=== PATIENT | female | born 1955 | race Caucasian/White ===

== ENCOUNTER 2019-02-15 12:06 | Outpatient (CLI) | payer MEDICARE, OTHER | END 2019-02-15 12:15 | LOC: LAB 12:06 | PROVIDERS: ATTEND Family Medicine | CPT/HCPCS: 36415; 86704; 86708; 86735; 86762; 86765; 86787 ==

== ENCOUNTER 2019-07-17 16:03 | Outpatient (CLI) | payer MEDICARE, OTHER ==
--- NOTE | 2019-07-18 10:19 | Diagnostic Imaging Report ---
KIM MATHEWS [facility] [address] [facility] [address] [id number] Report Submission Date: Jul 17, 2019 4:52:09 PM CDT Patient Study Name: JULIO GONSALES Date: Jul 17, 2019 4:01:14 PM CDT Modality Type: DX Gender: F Description: KNEE 3 VIEWS : 57 Institution: [facility] Physician: KIM MATHEWS 3 views of the right knee History: RT KNEE, ACUTE PAIN/SWELLING, PRIOR KNEE SURGERY No comparison studies Cortical deformity of the distal femur and proximal tibia are noted with intact internal fixation hardware. Juan-medial subluxation of the distal femur on the tibia Extensive degenerative changes with medial knee joint space narrowing. Soft tissue swelling and suprapatellar effusion are present. Extensive heterotopic ossification at the knee. Right proximal fibular old fracture deformity. Patellar subluxation Impression: 1. Old fracture deformities of the right distal femur, proximal tibia and fibula with extensive heterotopic ossification at the knee joint. The hardware is intact. 2. Anteromedial subluxation of the distal femur on the patella with patellar subluxation. Soft tissue swelling and suprapatellar effusion are present 3. Extensive degenerative changes with endplate sclerosis, medial knee joint space narrowing. Please compare with prior studies. Electronically signed on Jul 17, 2019 4:52:09 PM CDT by: Gaby BONE
== END 2019-07-17 16:05 ==
LOC: RAD 16:03
PROVIDERS: ATTEND Family Medicine
DX: M25.561 Pain in right knee (principal); M79.89 Other specified soft tissue disorders
CPT/HCPCS: 73562

== ENCOUNTER 2019-10-25 14:23 | Outpatient (CLI) | payer MEDICARE, OTHER ==
[2019-10-25 15:13] LABS: BASOPHILS % 0.7 % (0.0-1.5); NEUTROPHILS # 4.9 # k/uL (1.4-7.7)
[2019-10-25 15:44] LABS: HDL 44 mg/dL (>40); eGFR (Non-African) > 60
== END 2019-10-25 14:28 ==
LOC: LABRHC 14:23
PROVIDERS: ATTEND Family Medicine
DX: E78.5 Hyperlipidemia, unspecified (principal); R41.3 Other amnesia; R63.4 Abnormal weight loss; Z79.899 Other long term (current) drug therapy
CPT/HCPCS: 80053; 80061; 82607; 82746; 84443; 85025